=== PATIENT | male | born 1965 | race Caucasian/White ===

== ENCOUNTER 2021-03-08 17:15 | Emergency (ER) | payer SELFPAY ==
--- OUTSIDE RECORDS SUMMARY | 2021-03-08 17:17 | XMS REPORT | Continuity of Care Document ---
:1965 Author Organization [facility] t Address [address] [place] [address] Care Team Providers Name Role Phone Unavailable Unavailable Unavailable Problems This patient has no known problems. Allergies, Adverse Reactions, Alerts This patient has no known allergies or adverse reactions. Medications This patient has no known medications. Procedures This patient has no known procedures. Results Test Description Test Time Test Comments Results Result [facility] e Comments US Lower Ext 2019-01-24 Patient: HERNAN Venous Duplex 12:06:12 MACK WILSON Bilateral Date/Time01/24/2019 11:12 CSTReason for ExamExtremity EdemaReportDUPLEX VENOUS SONOGRAPHY BILATERAL LOWER EXTREMITIES.DIAGNOSIS: Lower leg swelling and DVTThe right and left femoral, popliteal and tibial veins are compressible with normal color-flow and augmentation. The venous spectral Doppler and color flow images are normal.IMPRESSION: Normal duplex venous sonography bilateral lower extremities. Final Dictated by: MD Fields Michael JackDictated DT/TM: 01/24/2019 12:05 pmSigned by: MD Fields Michael JackSigned (Electronic Signature): 01/24/2019 12:06 pm XR Chest 1 View 2019-01-24 Patient: HERNAN Frontal 10:57:27 MACK WILSON Date/Time01/24/2019 10:14 CSTReason for ExamChest painReportXR CHEST 1 VIEW FRONTALDIAGNOSIS: Chest pain and bilateral leg swellingThe heart and mediastinum are normal. No consolidation or pleural fluid is evident.IMPRESSION: No active disease and no change since 05/31/2014. Final Dictated by: MD Donnie, Mack MatthewsDictated DT/TM: 01/24/2019 10:56 amSigned by: MD Donnie Mack Jessgnjude (Electronic Signature): 01/24/2019 10:[address] Brain/Head w/o 2018-11-03 Patient: HERNAN Contrast 16:30:37 MACK Date/Time11/03/2018 16:08 CSTReason for Examnew onset headache, "worst headache of my life.";Headache(s)Repor tEXAMINATION: CT BRAIN WITHOUT CONTRASTCOMPARISON: NoneCLINICAL INFORMATION: New onset headache. The study was performed within 24 hours of the patient's arrival at the hospital.TECHNIQUE: Axial images of the brain were obtained without contrast administration. The ventricles are normal in size and configuration. Multiplanar reformatted images were obtained in the coronal sagittal planes. ALARA techniques utilized.FINDINGS:The ventricles and sulci are unremarkable. Tellez-white matter interface is preserved. No intra-cranial hemorrhage or mass-effect. No extra-axial fluid collections. No midline shift. No acute territorial vascular insults. Mild supratentorial deep white matter periventricular scattered hypodensities, left greater the right. Bone windows are unremarkable. Paranasal sinuses are clear. Mastoid air cells are well aerated. Globes are unremarkable.IMPRESSION :1. No acute intracranial abnormalities.2. Mild deep white matter chronic microvascular ischemic changes, left greater than right. Final Dictated by: MD Jose Antonio, SamerDictated DT/TM: 11/03/2018 4:25 pmSigned by: MD Jose Antonio, SamerSigned (Electronic Signature): 11/03/2018 4:30 pm
--- NOTE | 2021-03-08 19:26 | ER ---
Nurse's Notes [facility] Name: Mack Frank Age: 55 yrs Sex: Male : 1965 Arrival Date: 03/08/2021 Time: 17:18 Bed Waiting Private MD: Diagnosis: Presentation: 03/08 17:21 Chief complaint: Patient states: CP and LOVE began today. BP has been high since changing 1 insurance co. 10 days ago. Coronavirus screen: Client denies travel out of the [place] in the last 14 days. At this time, the client does not indicate any symptoms associated with coronavirus-19. Ebola Screen: Patient denies travel to an Ebola-affected area in the 21 days before illness onset. Initial Sepsis Screen: Does the patient meet any 2 criteria? No. Patient's initial sepsis screen is negative. Does the patient have a suspected source of infection? No. Patient's initial sepsis screen is negative. Risk Assessment: Do you want to hurt yourself or someone else? Patient reports no desire to harm self or others. Onset of symptoms was March 08, 2021. 17:21 Method Of Arrival: Ambulatory ll1 17:21 Acuity: ALEJANDRINA 3 ll1 Historical: - Allergies: 17:24 amlodipine; ll1 - PMHx: 17:24 Hypertension; ll1 - PSHx: 17:24 L foot x 4, low back fusion; Hernia repair; neck fusion; ll1 - Immunization history:: Flu vaccine is not up to date. - Social history:: Smoking status: Patient reports the use of cigarette tobacco products, smokes one pack cigarettes per day. Assessment: 19:21 Reassessment: Pt states, "I am just going to go ahead and go back to [facility]. My ca1 EKG is fine and I just had blood work and I was check by my doctor 3 months ago. I will just come back if I feel bad again. Maybe it was just my anxiety. I feel better now and am feeling good now". Vital Signs: 17:21 BP 152 / 103; Pulse 82; Resp 17; Temp 98.1; Pulse Ox 99% ; Weight 90.72 kg; Height 5 ll1 ft. 10 in. (177.80 cm); Pain 5/10; 17:21 Body Mass Index 28.70 (90.72 kg, 177.80 cm) ll1 ED Course: 17:18 Patient arrived in ED. as 17:23 Triage completed. ll1 17:24 Arm band placed on. ll1 17:28 EKG completed in triage. Results shown to . penny Administered Medications: No medications were administered Outcome: 19:25 Patient left the ED. ca1 Signatures: Evy Mazariegos Cheryl RN RN ca1 Charlee Fernández RN RN ll1
[2021-03-08 19:33] VITALS: BP 152/103; TEMP 98.1; O2SAT 99
== END 2021-03-08 19:25 | disposition left against medical advice (07) ==
LOC: ER 17:15
DX: Z02.9 Encounter for administrative examinations, unspecified (principal)
CPT/HCPCS: 93005; 99281

== ENCOUNTER 2021-03-14 10:43 | Emergency (ER) | payer OTHER ==
--- OUTSIDE RECORDS SUMMARY | 2021-03-14 10:46 | XMS REPORT | Continuity of Care Document ---
:1965 Author Organization [facility] t Address [address] [place] [address] Care Team Providers Name Role Phone Unavailable Unavailable Unavailable Problems This patient has no known problems. Allergies, Adverse Reactions, Alerts This patient has no known allergies or adverse reactions. Medications This patient has no known medications. Procedures This patient has no known procedures. Results Test Description Test Time Test Comments Results Result [facility] e Comments US Lower Ext 2019-01-24 Patient: HERNAN, Venous Duplex 12:06:12 MEKA WILSON Bilateral Date/Time01/24/2019 11:12 CSTReason for ExamExtremity [...] 1 View 2019-01-24 Patient: HERNAN Frontal 10:57:27 MEKA WILSON Date/Time01/24/2019 10:14 CSTReason for ExamChest painReportXR CHEST 1 VIEW FRONTALDIAGNOSIS: Chest pain and bilateral leg swellingThe heart and mediastinum are normal. No consolidation or pleural fluid is evident.IMPRESSION: No active disease and no change since 05/31/2014. Final Dictated by: MD Fields Michael JackDictated DT/TM: 01/24/2019 10:56 amSigned by: MD Fields Michael JackSigned (Electronic Signature): 01/24/2019 10:[address] Brain/Head w/o 2018-11-03 Patient: HERNAN, Contrast 16:30:37 MEKA Date/Time11/03/2018 16:08 CSTReason for Examnew onset headache, [...]
--- NOTE | 2021-03-14 12:26 | RAD REPORT ---
EXAM DESCRIPTION: Roberto Single View03/14/2021 11:59 am CLINICAL HISTORY: Chest pain COMPARISON: none FINDINGS: The lungs appear clear of acute infiltrate. The heart is normal size IMPRESSION: No acute abnormalities displayed
[2021-03-14 12:31] LABS: Basophils % 0.4 % (0-1.3); Hematocrit 36.8 % (39.6-49.0); Lymphocytes % 30.1 % (15.3-44.8); MPV 7.7 fL (7.6-11.3); Protime INR 1.05; RBC Red Blood Cell Count 4.48 M/uL (4.33-5.43)
[2021-03-14 12:58] LABS: ALT/SGPT 20 U/L (12-78); Albumin 3.8 g/dL (3.4-5.0); Alkaline Phosphatase 41 U/L (45-117); BUN Blood Urea Nitrogen 19 mg/dL (7-18); Bicarbonate 25 mmol/L (21-32); Bilirubin Direct < 0.1 mg/dL (0-0.2); Bilirubin Total 0.3 mg/dL (0.2-1.0); Glucose Level 127 mg/dL (74-106); NT PRO-BNP 94 pg/mL (<125); Protein, Total 6.7 g/dL (6.4-8.2); Sodium Level 143 mmol/L (136-145); Troponin (Emerg Dept Use Only) < 0.02 ng/mL (0.0-0.045)
[2021-03-14 13:04] LABS: AST/SGOT 17 U/L (15-37); Magnesium 2.2 mg/dL (1.8-2.4); Potassium 3.8 mmol/L (3.5-5.1)
--- NOTE | 2021-03-14 14:19 | ER ---
Nurse's Notes [facility] Name: Mack Frank Age: 55 yrs Sex: Male : 1965 Arrival Date: 03/14/2021 Time: 10:44 Bed 14 Private MD: Diagnosis: Other chest pain Presentation: 03/14 11:20 Chief complaint: Patient states: chest tightness that started about 9 this morning, em denies N/V, also reports diarrhea for a few weeks. Coronavirus screen: Client denies travel out of the [place] in the last 14 days. Ebola Screen: Patient negative for fever greater than or equal to 101.5 degrees Fahrenheit, and additional compatible Ebola Virus Disease symptoms Patient denies exposure to infectious person. Patient denies travel to an Ebola-affected area in the 21 days before illness onset. No symptoms or risks identified at this time. Initial Sepsis Screen: Does the patient meet any 2 criteria? No. Patient's initial sepsis screen is negative. Does the patient have a suspected source of infection? No. Patient's initial sepsis screen is negative. Risk Assessment: Do you want to hurt yourself or someone else? Patient reports no desire to harm self or others. Onset of symptoms was March 14, 2021. 11:20 Method Of Arrival: Ambulatory em 11:20 Acuity: ALEJANDRINA 3 em Triage Assessment: 11:51 General: Appears in no apparent distress. Behavior is calm, cooperative, appropriate tr6 for age. Pain: Complains of pain in pt c/o constant midsternal cp since 9am. Pain does not radiate. Historical: - Allergies: 11:23 amlodipine; em - PMHx: 11:23 Hypertension; em - PSHx: 11:23 L foot x 4, low back fusion; Hernia repair; neck fusion; em - Immunization history:: Adult Immunizations up to date. - Social history:: Smoking status: Patient reports the use of cigarette tobacco products, smokes one-half pack cigarettes per day. Screenin:50 Abuse screen: Denies threats or abuse. Nutritional screening: No deficits noted. tr6 Tuberculosis screening: No symptoms or risk factors identified. Fall Risk None identified. Assessment: 11:52 Cardiovascular: Reports chest pain. tr6 12:59 Pain: Pain began suddenly, pt reports pain suddenly this morning at 9am. tr6 13:00 Reassessment: Patient appears in no apparent distress at this time. Patient and/or tr6 family updated on plan of care and expected duration. Pain level reassessed. Patient is alert, oriented x 3, equal unlabored respirations, skin warm/dry/pink. pt resting comfortably in bed. respirations even and unlabored. VSS. pending lab results. Will continue to monitor. 13:17 Reassessment: Patient and/or family updated on plan of care and expected duration. Pain tr6 level reassessed. Patient is alert, oriented x 3, equal unlabored respirations, skin warm/dry/pink. pt states he feels "more relaxed and that the pain is mostly gone. ". 13:19 Reassessment: pt OOB and ambulated to bathroom independently. tr6 14:04 Reassessment: Patient appears in no apparent distress at this time. Patient and/or tr6 family updated on plan of care and expected duration. Pain level reassessed. Patient is alert, oriented x 3, equal unlabored respirations, skin warm/dry/pink. Pain: Aggravated by exercise, increased activity. 15:46 Reassessment: MD reviewed AMA with pt and pt verbalized understanding. pt states that tr6 he will f/u with an MD at home. Vital Signs: 11:20 BP 154 / 107; Pulse 86; Resp 20; Temp 98.7(O); Pulse Ox 99% on R/A; Weight 83.91 kg; em Height 5 ft. 10 in. (177.80 cm); Pain 6/10; 11:51 BP 150 / 91 RA; Pulse 80; Resp 18; Pulse Ox 98% ; tr6 11:53 BP 150 / 108 LA; tr6 13:15 BP 138 / 80; Pulse 74; Resp 18; Pulse Ox 99% ; tr6 11:20 Body Mass Index 26.54 (83.91 kg, 177.80 cm) em ED Course: 10:44 Patient arrived in ED. as 11:06 Trevin Gutiérrez MD is Attending Physician. tw4 11:11 Triage completed. em 11:23 Arm band placed on. em 11:52 Patient has correct armband on for positive identification. Placed in gown. Call light tr6 in reach. Side rails up X 1. school lunch monitor on. Pulse ox on. NIBP on. 11:52 No provider procedures requiring assistance completed. Patient maintains SpO2 tr6 saturation greater than 95% on room air. 11:59 XRAY Chest (1 view) In Process Unspecified. EDMS 12:03 Inserted saline lock: 18 gauge in right forearm, using aseptic technique. ,using tr6 aseptic technique. by TTR RN Blood collected. 12:04 CBC with Diff Sent. tr6 12:04 LFT's Sent. tr6 12:04 Basic Metabolic Panel Sent. tr6 12:04 Magnesium Sent. tr6 12:04 NT PRO-BNP Sent. tr6 12:04 PT-INR Sent. tr6 12:04 Troponin (emerg Dept Use Only) Sent. tr6 12:23 Basic Metabolic Panel Sent. tr6 14:01 Troponin (emerg Dept Use Only) Sent. tr6 14:15 Latrell Davies DO is Hospitalizing Provider. tw4 15:38 IV discontinued. tr6 Administered Medications: No medications were administered Outcome: 14:18 Decision to Hospitalize by Provider. tw4 15:47 AMA AMA form signed tr6 15:47 Condition: good 15:47 Discharge instructions given to patient, AMA info reviewed with pt by 15:48 Patient left the ED. tr6 Signatures: Dispatcher [employer] Stefan Contreras, RN RN em Evy Mazariegos Terrence, MD MD tw4 Noemy Smith RN RN tr6 Corrections: (The following items were deleted from the chart) 11:17 11:10 Chief complaint: Patient states: substernal chest pain that started about hour em ago, reports N/V and radiates into left arm and wrist em 11:17 11:10 Coronavirus screen: Client denies travel out of the [place] in the last 14 days. em em 11:17 11:10 Ebola Screen: Patient negative for fever greater than or equal to 101.5 degrees em Fahrenheit, and additional compatible Ebola Virus Disease symptoms Patient denies exposure to infectious person. Patient denies travel to an Ebola-affected area in the 21 days before illness onset. No symptoms or risks identified at this time. em 11:17 11:10 Risk Assessment: Do you want to hurt yourself or someone else? Patient reports no em desire to harm self or others. em 11:17 11:10 Initial Sepsis Screen: Does the patient meet any 2 criteria? No. Patient's em initial sepsis screen is negative. Does the patient have a suspected source of infection? No. Patient's initial sepsis screen is negative. em 11:10 Onset of symptoms was March 14, 2021 [facility] 11:10 Method Of Arrival: Wheelchair [facility] 11:10 BP 112 / 86; Pulse 89bpm; Resp 20bpm; Pulse Ox 99% RA; 102.06 kg; Height 6 ft. 0 em in.; BMI: 30.5; Pain 08/27; em 11:10 Acuity: ALEJANDRINA 3 em 11:53 11:51 BP 150 / 91; Pulse 80bpm; Resp 18bpm; Pulse Ox 98%; tr6 tr6
--- NOTE | 2021-03-14 14:19 | EDPHYS ---
Physician Documentation [facility] Name: Mack Frank Age: 55 yrs Sex: Male : 1965 Arrival Date: 03/14/2021 Time: 10:44 Bed 14 Private MD: ED Physician Trevin Gutiérrez HPI: 03/14 12:48 This 55 yrs old Male presents to ER via Ambulatory with complaints of Chest tw4 Tightness. 12:48 The patient or guardian reports chest pain that is located primarily in the anterior tw4 chest wall. 12:49 Onset: this morning, today. The pain does not radiate. Associated signs and symptoms: tw4 The patient has no apparent associated signs or symptoms. Modifying factors: The symptoms are alleviated by nothing. the symptoms are aggravated by nothing. The patient has not experienced similar symptoms in the past. Historical: - Allergies: 11:23 amlodipine; em - PMHx: 11:23 Hypertension; em - PSHx: 11:23 L foot x 4, low back fusion; Hernia repair; neck fusion; em - Immunization history:: Adult Immunizations up to date. - Social history:: Smoking status: Patient reports the use of cigarette tobacco products, smokes one-half pack cigarettes per day. ROS: 12:49 Constitutional: Negative for fever, chills, and weight loss, Eyes: Negative for injury, tw4 pain, redness, and discharge, Respiratory: Negative for shortness of breath, cough, wheezing, and pleuritic chest pain, Abdomen/GI: Negative for abdominal pain, nausea, vomiting, diarrhea, and constipation, Back: Negative for injury and pain, MS/Extremity: Negative for injury and deformity, Skin: Negative for injury, rash, and discoloration, Neuro: Negative for headache, weakness, numbness, tingling, and seizure. 12:49 Cardiovascular: Positive for chest pain, Negative for edema, orthopnea, palpitations, paroxysmal nocturnal dyspnea. Exam: 12:50 Constitutional: This is a well developed, well nourished patient who is awake, alert, tw4 and in no acute distress. Head/Face: Normocephalic, atraumatic. Eyes: Pupils equal round and reactive to light, extra-ocular motions intact. Lids and lashes normal. Conjunctiva and sclera are non-icteric and not injected. Cornea within normal limits. Periorbital areas with no swelling, redness, or edema. Chest/axilla: Normal chest wall appearance and motion. Nontender with no deformity. No lesions are appreciated. Cardiovascular: Regular rate and rhythm with a normal S1 and S2. No gallops, murmurs, or rubs. Normal PMI, no JVD. No pulse deficits. Respiratory: Lungs have equal breath sounds bilaterally, clear to auscultation and percussion. No rales, rhonchi or wheezes noted. No increased work of breathing, no retractions or nasal flaring. Abdomen/GI: Soft, non-tender, with normal bowel sounds. No distension or tympany. No guarding or rebound. No evidence of tenderness throughout. Back: No spinal tenderness. No costovertebral tenderness. Full range of motion. Skin: Warm, dry with normal turgor. Normal color with no rashes, no lesions, and no evidence of cellulitis. MS/ Extremity: Pulses equal, no cyanosis. Neurovascular intact. Full, normal range of motion. Neuro: Awake and alert, GCS 15, oriented to person, place, time, and situation. Cranial nerves II-XII grossly intact. Motor strength 5/5 in all extremities. Sensory grossly intact. Cerebellar exam normal. Normal gait. Vital Signs: 11:20 BP 154 / 107; Pulse 86; Resp 20; Temp 98.7(O); Pulse Ox 99% on R/A; Weight 83.91 kg; em Height 5 ft. 10 in. (177.80 cm); Pain 6/10; 11:51 BP 150 / 91 RA; Pulse 80; Resp 18; Pulse Ox 98% ; tr6 11:53 BP 150 / 108 LA; tr6 13:15 BP 138 / 80; Pulse 74; Resp 18; Pulse Ox 99% ; tr6 11:20 Body Mass Index 26.54 (83.91 kg, 177.80 cm) em MDM: 11:25 Patient medically screened. tw4 15:35 Differential diagnosis: cholecystitis, Cholelithiasis costochondritis, gastroesophageal tw4 reflux disease (GERD), pancreatitis, pericarditis, pulmonary embolus, stable angina. Data reviewed: vital signs, nurses notes. Counseling: I had a detailed discussion with the patient and/or guardian regarding: the historical points, exam findings, and any diagnostic results supporting the discharge/admit diagnosis, the presence of at least one elevated blood pressure reading (>120/80) during this emergency department visit. Refusal of service: The patient/guardian displays adequate decision making capability and despite a detailed discussion of alternatives, benefits, risks, and consequences refuses: Admission to the hospital for further work-up and treatment. 03/14 11:49 Order name: Basic Metabolic Panel [facility] 03/14 11:49 Order name: CBC with Diff; Complete Time: 12:48 [facility] 03/14 13:26 Interpretation: Normal except: HCT 36.8; HGB 12.3; EOSINOPHIL % 4.6. 03/14 11:49 Order name: LFT's; Complete Time: 13:26 03/14 13:26 Interpretation: Normal except: ALK 41. 03/14 11:49 Order name: Magnesium; Complete Time: 13:26 03/14 11:49 Order name: NT PRO-BNP; Complete Time: 13:26 [facility] 03/14 13:26 Interpretation: Within normal limits: NT PRO-BNP 94. 03/14 11:49 Order name: PT-INR; Complete Time: 13:26 03/14 13:26 Interpretation: Within normal limits: PT 12.1. 03/14 11:49 Order name: Troponin (emerg Dept Use Only); Complete Time: 13:24 03/14 13:25 Interpretation: Within normal limits: TROPED < 0.02. 03/14 11:49 Order name: XRAY Chest (1 view); Complete Time: 12:29 03/14 12:29 Interpretation: No acute disease. 03/14 11:49 Order name: EKG; Complete Time: 11:49 03/14 11:49 Order name: Cardiac monitoring; Complete Time: 11:54 [facility] 03/14 11:49 Order name: EKG - Nurse/Tech; Complete Time: 12:14 03/14 11:49 Order name: Basic Metabolic Panel; Complete Time: 13:26 [facility] 03/14 13:26 Interpretation: Normal except: BUN 19; CL 112; GLUC 127; GFR 85. 03/14 13:26 Order name: Troponin (emerg Dept Use Only) [facility] 03/14 11:49 Order name: IV Saline Lock; Complete Time: 12:04 tw4 03/14 11:49 Order name: Labs collected and sent; Complete Time: 12:04 4 03/14 11:49 Order name: O2 Per Protocol; Complete Time: 11:53 tw4 03/14 11:49 Order name: O2 Sat Monitoring; Complete Time: 11:54 tw4 EC:35 Rate is 72 beats/min. Rhythm is regular. QRS Flora is Normal. IN interval is normal. QRS tw4 interval is normal. QT interval is normal. No Q waves. T waves are Normal. No ST changes noted. Clinical impression: Normal ECG. Interpreted by me. Reviewed by me. Administered Medications: No medications were administered Disposition: 03/14/21 15:34 Patient has left against medical advice. Impression: Other chest pain. - Patients states they are going to Home. - Condition is Stable. - Discharge Instructions: Nonspecific Chest Pain. Medication Reconciliation Form, Thank You Letter, Antibiotic Education form. Follow up: Private Physician; When: Upon discharge from the Emergency Department; Reason: Recheck today's complaints, Continuance of care, Re-evaluation by your physician. - Problem is new. - Symptoms have improved. Signatures: Dispatcher [employer] [facility] Stefan Natarajan, RN RN em Trevin Gutiérrez MD MD tw4 Noemy Smith RN RN tr6 Corrections: (The following items were deleted from the chart) 12:49 12:48 Onset: yesterday, tw4 tw4 13:26 12:48 Normal except: HCT 36.8; HGB 12.3. tw4 tw4 15:16 14:54 CORONAVIRUS+MR.LAB.BRZ ordered. [facility] 15:33 14:18 Hospitalization Ordered by Latrell Davies DO for Observation. Preliminary tw4 diagnosis is Other chest pain. Bed requested for Telemetry/MedSurg (observation). Status is Observation. Condition is Stable. Problem is new. Symptoms have improved. tw4 15:48 15:34 03/14/2021 15:34 Patients has left against medical advice. Impression: Other tr6 chest pain. Patient states they are going to Home. Condition is Stable. Follow up: Private Physician; When: Upon discharge from the Emergency Department; Reason: Recheck today's complaints, Continuance of care, Re-evaluation by your physician. Problem is new. Symptoms have improved. tw4
[2021-03-14 16:08] VITALS: TEMP 98.7
[2021-03-14 16:12] VITALS: BP 138/80; O2SAT 99
--- NOTE | 2021-03-15 12:53 | EKG ---
Test Date: 2021-03-14 Test Time: 12:11:06 Medical Assistant Ob Gyn: TTR MEASUREMENT RESULTS: Intervals: Rate: 72 NV: 164 QRSD: 96 QT: 426 QTc: 466 Cuthbert: P: 64 NV: 164 QRS: 15 T: 45 INTERPRETIVE STATEMENTS: Normal sinus rhythm Normal ECG Compared to ECG 03/08/2021 17:28:01 No significant changes Electronically Signed On 03-15-21 12:52:14 CDT by Matthew Sauceda
== END 2021-03-14 15:48 | disposition left against medical advice (07) ==
LOC: ER 10:43
DX: R07.89 Other chest pain (principal); Z53.20 Procedure and treatment not carried out because of patient's decision for unspecified reasons; Z20.822 Contact with and (suspected) exposure to COVID-19; F17.210 Nicotine dependence, cigarettes, uncomplicated; I10 Essential (primary) hypertension
CPT/HCPCS: 85025; 80048; 36415; 83735; 85610; 80076; 84484 ×2; 83880; 71045; U0003; 93005; 99285